=== PATIENT | male | born 1960 | race Caucasian/White ===

== ENCOUNTER → 2021-02-23 | Outpatient (CLI) | payer OTHER ==
[~2021-02-23] MED LIST: BIAXIN500 MG PO; CLARITIN10 MG PO; PROVENTIL0.09 MG/AC IH
== END | disposition home or self-care (01) ==
LOC: US 07:11
PROVIDERS: ATTEND Internal Medicine Gastroenterology
DX: K76.89 Other specified diseases of liver (principal); K74.60 Unspecified cirrhosis of liver; K82.8 Other specified diseases of gallbladder

== ENCOUNTER 2024-01-22 11:12 | Emergency (ER) | payer MEDICARE ==
[~2024-01-22] VITALS: Ht 175.2 cm; Wt 96.2 kg
[2024-01-22] MEDS ORDERED: Acetaminophen/Hydrocodone 5 MG/325 MG TABLET PO ONE (11:40)
[2024-01-22 11:55] LABS: BASO % 0.2 % (0.0-1.0); EOS # 0.1 10*3/uL (0.0-0.4); EOS % 1.2 % (1.0-4.0); HEMATOCRIT 41.7 % (42.0-52.0); LYMPH # 0.8 10*3/uL (1.3-4.4); LYMPH % 6.8 % (27.0-41.0); MEAN CELL VOLUME 89.7 fl (80.0-94.0); MEAN CORPUSCULAR HGB 32.3 pg (27.0-31.0); MEAN PLATELET VOLUME 9.8 fl (9.6-12.3); MONO # 0.9 10*3/uL (0.1-1.0); MONO % 7.7 % (3.0-9.0); NEUT # 10.1 10*3/uL (2.3-7.9); NEUT % 83.4 % (47.0-73.0); PLATELET COUNT AUTOMATED 93 10*3/uL (130-400); RED BLOOD COUNT 4.65 10*6/uL (4.50-5.90); RED CELL DISTRI WIDTH 12.8 % (0-14.5); WHITE BLOOD COUNT 12.1 10*3/uL (4.8-10.8)
[2024-01-22 12:19] LABS: BUN 16 mg/dl (9-23); CHLORIDE 98 mmol/L (98-107); POTASSIUM 2.9 mmol/L (3.4-5.1)
[2024-01-22] MEDS ORDERED: POTASSIUM CHLORIDE 20 MEQ TAB PO ONE (12:55)
[2024-01-22] MEDS ORDERED: VIBRAMYCIN100 MG PO (13:21)
[2024-01-22] MEDS ORDERED: CEPHALEXIN500 M1 PO (13:22)
== END 2024-01-22 13:35 | disposition home or self-care (01) ==
LOC: ED 11:12
PROVIDERS: Physician Assistant Medical
DX: S93.402A Sprain of unspecified ligament of left ankle, initial encounter (principal); L03.116 Cellulitis of left lower limb; I10 Essential (primary) hypertension; X50.1XXA Overexertion from prolonged static or awkward postures, initial encounter; Y93.53 Activity, golf; Y92.39 Other specified sports and athletic area as the place of occurrence of the external cause; Y99.8 Other external cause status

== ENCOUNTER → 2024-10-21 | Outpatient (CLI) | payer MEDICARE ==
[~2024-10-21] MED LIST changes: +CEPHALEXIN500 M1 PO; +IOHEXOL 300 MG/ML 100 ML VIAL IV ONE; +IOHEXOL 300 MG/ML 100 ML VIAL ONE; +VIBRAMYCIN100 MG PO
== END | disposition home or self-care (01) ==
LOC: CT 01:02
PROVIDERS: ATTEND Internal Medicine Gastroenterology
DX: K76.0 Fatty (change of) liver, not elsewhere classified (principal); R16.1 Splenomegaly, not elsewhere classified; R93.89 Abnormal findings on diagnostic imaging of other specified body structures

== ENCOUNTER → 2025-06-30 | Outpatient (CLI) | payer MEDICARE | END | disposition home or self-care (01) | LOC: CT 03:04 | PROVIDERS: ATTEND Internal Medicine Gastroenterology | DX: K74.69 Other cirrhosis of liver (principal); E27.8 Other specified disorders of adrenal gland; R93.89 Abnormal findings on diagnostic imaging of other specified body structures ==

== ENCOUNTER 2025-07-04 11:13 | Emergency (ER) | payer MEDICARE ==
[~2025-07-04] VITALS: Ht 175.2 cm; Wt 88.5 kg
[~2025-07-04 11:13] MED LIST changes: -IOHEXOL 300 MG/ML 100 ML VIAL IV ONE; -IOHEXOL 300 MG/ML 100 ML VIAL ONE
[2025-07-04] MEDS ORDERED: VIBRAMYCIN100 MG PO (11:48)
== END 2025-07-04 12:05 | disposition home or self-care (01) ==
LOC: ED 11:13
DX: L03.314 Cellulitis of groin (principal)